=== PATIENT | male | born 1965 | race Caucasian/White ===

== ENCOUNTER 2017-09-29 06:05 | Emergency (ER) | payer OTHER ==
[~2017-09-29] VITALS: Ht 238.7 cm; Wt 88.5 kg
[2017-09-29] MEDS ORDERED: ALLOPURINOL100 MG PO (06:17)
[2017-09-29] MEDS ORDERED: FENOFIBRATE54 MG PO (06:17)
[2017-09-29] MEDS ORDERED: INDOMETHACIN50 MG PO (07:24)
== END 2017-09-29 07:38 | disposition home or self-care (01) ==
LOC: ED 06:05
DX: M25.572 Pain in left ankle and joints of left foot (principal); M79.672 Pain in left foot; M10.9 Gout, unspecified; Z79.899 Other long term (current) drug therapy